=== PATIENT | male | born 1970 | race Caucasian/White ===

== ENCOUNTER 2017-06-17 15:37 | Emergency (ER) | payer BC ==
[2017-06-17 16:43] LABS: ANION GAP 8 MEQ/L (8-16); BLOOD UREA NITROGEN 38 MG/DL (7-18); CALCIUM LEVEL 8.3 MG/DL (8.5-10.1); CARBON DIOXIDE LEVEL 22 MEQ/L (21-32); CHLORIDE LEVEL 113 MEQ/L (98-107); CREATININE FOR GFR 3.09 MG/DL (0.70-1.30); GLOMERULAR FILTRATION RATE 23.2 (>60); GLUCOSE, FASTING 120 MG/DL (70-100); POTASSIUM SERUM 3.9 MEQ/L (3.5-5.1); SODIUM LEVEL 143 MEQ/L (136-145)
[2017-06-17] MEDS: BISACODYL 10 MG SUPP PR (17:45)
== END 2017-06-17 18:17 | disposition home or self-care (01) ==
LOC: M ED 15:37
DX: K59.00 Constipation, unspecified (principal); N18.4 Chronic kidney disease, stage 4 (severe)
CPT/HCPCS: 80048

== ENCOUNTER → 2018-06-11 | Outpatient (REF) | payer BC ==
[~2018-06-11] MED LIST: DULC10SU2 PR; MIRA3350 PO; [UNRECOGNIZED DRUG - CODE] EX
[2018-06-11 19:43] LABS: PERCENT SATURATION 26.6 % (19.7-50.0)
== END ==
LOC: M LAB REF 17:46
PROVIDERS: ATTEND Internal Medicine Nephrology
DX: D64.9 Anemia, unspecified (principal)

== ENCOUNTER → 2019-05-14 | Outpatient (REF) | payer BC ==
[2019-05-14 13:39] LABS: TOTAL T3 77.9 NG/DL (60.0-181.0)
[2019-05-14 13:47] LABS: ALBUMIN 3.8 GM/DL (3.2-5.2); BILIRUBIN,DIRECT 0.1 MG/DL (0.0-0.2); BILIRUBIN,TOTAL 0.4 MG/DL (0.2-1.0); CHOLESTEROL RISK RATIO 3.109 (<5); THYROID STIMULATING HORMONE 2.62 uIU/ML (0.358-3.740); TOTAL PROTEIN 6.7 GM/DL (6.4-8.2)
== END ==
LOC: M LAB REF 13:05
PROVIDERS: ATTEND Nurse Practitioner Family
DX: N18.4 Chronic kidney disease, stage 4 (severe) (principal); Z13.220 Encounter for screening for lipoid disorders; R53.83 Other fatigue

== ENCOUNTER → 2020-04-16 | Outpatient (CLI) | payer SELFPAY | LOC: M LABSMTC 12:13 | PROVIDERS: ATTEND Pediatrics | DX: Z20.822 Contact with and (suspected) exposure to COVID-19 (principal) ==

== ENCOUNTER → 2020-08-19 | Outpatient (CLI) | payer BC | LOC: M LABSMTC 10:02 | PROVIDERS: ATTEND Anesthesiology | DX: Z01.812 Encounter for preprocedural laboratory examination (principal); Z20.822 Contact with and (suspected) exposure to COVID-19 ==

== ENCOUNTER 2020-08-24 08:02 | Day surgery (SDC) | payer BC ==
[~2020-08-24] VITALS: Ht 180.3 cm; Wt 74.4 kg
[~2020-08-24 08:02] MED LIST changes: +NS 1,000 ML IV ONE
[2020-08-24] MEDS ORDERED: LIDOCAINE 2% 100MG/5ML SDV (FOR ANES.) As Ordered ONE (08:36)
[2020-08-24] MEDS ORDERED: propofoL 200 MG/20 ML VIAL As Ordered ONE (08:36)
--- NOTE | 2020-08-24 09:31 | ROOR ---
Patient Name: Dashawn Reynolds Procedure Date: 08/24/2020 9:27 AM Date of : 1970 Age: 50 Room: [facility] Gender: Male Note Status: Finalized Procedure: Colonoscopy Indications: Abdominal pain in the right upper quadrant Providers: DO Oswaldo Carolina MD: Sydnee Steve Md Requesting Provider: Medicines: Propofol per Anesthesia Complications: No immediate complications. Procedure: Pre-Anesthesia Assessment: - Prior to the procedure, a History and Physical was performed, and patient medications and allergies were reviewed. The patient is competent. The risks and benefits of the procedure and the sedation options and risks were discussed with the patient. All questions were answered and informed consent was obtained. Patient identification and proposed procedure were verified by the physician, the nurse, the day care attendant and the resource technician in the endoscopy suite. Mental Status Examination: alert and oriented. Airway Examination: normal oropharyngeal airway and neck mobility. Respiratory Examination: clear to auscultation. CV Examination: normal. Prophylactic Antibiotics: The patient does not require prophylactic antibiotics. Prior Anticoagulants: The patient has taken no previous anticoagulant or antiplatelet agents. ASA Grade Assessment: II - A patient with mild systemic disease. After reviewing the risks and benefits, the patient was deemed in satisfactory condition to undergo the procedure. The anesthesia plan was to use monitored anesthesia care (MAC). Immediately prior to administration of medications, the patient was re-assessed for adequacy to receive sedatives. The heart rate, respiratory rate, oxygen saturations, blood pressure, adequacy of pulmonary ventilation, and response to care were monitored throughout the procedure. The physical status of the patient was re-assessed after the procedure. The Colonoscope was introduced through the anus and advanced to the cecum, identified by appendiceal orifice and ileocecal valve. The colonoscopy was performed without difficulty. The patient tolerated the procedure well. Findings: Non-bleeding internal hemorrhoids were found during retroflexion. The hemorrhoids were Grade II (internal hemorrhoids that prolapse but reduce spontaneously). Two hyperplastic polyps were found in the transverse colon. The polyps were small in size. Estimated blood loss was minimal. These polyps were removed with a jumbo cold forceps. Resection and retrieval were complete. Impression: - Non-bleeding internal hemorrhoids. - Two small polyps in the transverse colon, removed with a jumbo cold forceps. Resected and retrieved. Recommendation: - Patient has a contact number available for emergencies. The signs and symptoms of potential delayed complications were discussed with the patient. Return to normal activities tomorrow. Written discharge instructions were provided to the patient. - Repeat colonoscopy in 5-10 years for surveillance based on pathology results. - Return to my office as previously scheduled. Procedure Code(s): --- Professional --- 19689, Colonoscopy, flexible; with biopsy, single or multiple Diagnosis Code(s): --- Professional --- K64.1, Second degree hemorrhoids K63.5, Polyp of colon R10.11, Right upper quadrant pain CPT copyright 2019 [employer]. All rights reserved. The codes documented in this report are preliminary and upon color laboratory technician review may be revised to meet current compliance requirements. Neri Burton DO 08/24/2020 9:31:03 AM Electronically signed by Neri Burton DO Number of Addenda: 0 Note Initiated On: 08/24/2020 9:27 AM Estimated Blood Loss: Estimated blood loss was minimal.
--- NOTE | 2020-08-24 10:09 | ROOR ---
Patient Name: Dashawn Reynolds Procedure Date: 08/24/2020 9:47 AM Date of : 1970 Age: 50 Room: [facility] Gender: Male Note Status: Finalized Procedure: Colonoscopy Indications: Screening for colorectal malignant neoplasm Providers: Neri Burton DO Referring MD: ADITHYA CHILDRESS DO Requesting Provider: Medicines: Propofol per Anesthesia Complications: No immediate complications. Procedure: Pre-Anesthesia Assessment: - Prior to the procedure, a History and Physical was performed, and patient medications and allergies were reviewed. The patient is competent. The risks and benefits of the procedure and the sedation options and risks were discussed with the patient. All questions were answered and informed consent was obtained. Patient identification and proposed procedure were verified by the physician, the nurse, the value stream manager and the land survey technician in the endoscopy suite. Mental Status Examination: alert and oriented. Airway Examination: normal oropharyngeal airway and neck mobility. Respiratory Examination: clear to auscultation. CV Examination: normal. Prophylactic Antibiotics: The patient does not require prophylactic antibiotics. Prior Anticoagulants: The patient has taken no previous anticoagulant or antiplatelet agents. ASA Grade Assessment: II - A patient with mild systemic disease. After reviewing the risks and benefits, the patient was deemed in satisfactory condition to undergo the procedure. The anesthesia plan was to use monitored anesthesia care (MAC). Immediately prior to administration of medications, the patient was re-assessed for adequacy to receive sedatives. The heart rate, respiratory rate, oxygen saturations, blood pressure, adequacy of pulmonary ventilation, and response to care were monitored throughout the procedure. The physical status of the patient was re-assessed after the procedure. The Colonoscope was introduced through the anus and advanced to the cecum, identified by appendiceal orifice and ileocecal valve. The colonoscopy was performed without difficulty. The patient tolerated the procedure well. Findings: Non-bleeding internal hemorrhoids were found during retroflexion. The hemorrhoids were mild and Grade I (internal hemorrhoids that do not prolapse). The exam was otherwise without abnormality. Impression: - Non-bleeding internal hemorrhoids. - The examination was otherwise normal. - No specimens collected. Recommendation: - Patient has a contact number available for emergencies. The signs and symptoms of potential delayed complications were discussed with the patient. Return to normal activities tomorrow. Written discharge instructions were provided to the patient. - Repeat colonoscopy in 5-10 years for screening purposes. - Return to my office PRN. Procedure Code(s): --- Professional --- G0121, Colorectal cancer screening; colonoscopy on individual not meeting criteria for high risk Diagnosis Code(s): --- Professional --- Z12.11, Encounter for screening for malignant neoplasm of colon K64.0, First degree hemorrhoids CPT copyright 2019 [employer]. All rights reserved. The codes documented in this report are preliminary and upon studio technician video operator review may be revised to meet current compliance requirements. Neri Burton DO 08/24/2020 10:09:51 AM Electronically signed by Neri Burton DO Number of Addenda: 0 Note Initiated On: 08/24/2020 9:47 AM Estimated Blood Loss: Estimated blood loss: none.
[2020-08-24 10:35] VITALS: BP 109/67
== END 2020-08-24 10:36 | disposition home or self-care (01) ==
LOC: M OPP 08:02
PROVIDERS: ATTEND Surgery
DX: Z12.11 Encounter for screening for malignant neoplasm of colon (principal); K64.0 First degree hemorrhoids; N18.9 Chronic kidney disease, unspecified

== ENCOUNTER → 2020-10-27 | Outpatient (CLI) | payer BC ==
[~2020-10-27] MED LIST changes: -NS 1,000 ML IV ONE
== END ==
LOC: M WUC 15:26
DX: Z01.818 Encounter for other preprocedural examination (principal)

== ENCOUNTER → 2020-12-02 | Outpatient (REF) | payer BC | LOC: M LAB REF 12:59 | PROVIDERS: ATTEND Nurse Practitioner Family | DX: E83.42 Hypomagnesemia (principal) ==

== ENCOUNTER → 2021-02-25 | Outpatient (REF) | payer BC ==
[2021-02-25 13:40] LABS: FREE THYROXINE INDEX 2.9 % (1.4-3.8); THYROID STIMULATING HORMONE 2.15 uIU/ML (0.358-3.740); THYROXINE (T4) 8.4 UG/DL (4.5-12.0)
== END ==
LOC: M LAB REF 13:02
PROVIDERS: ATTEND Nurse Practitioner Family
DX: R53.83 Other fatigue (principal)

== ENCOUNTER → 2021-07-28 | Outpatient (REF) | payer BC | LOC: M LAB REF 17:26 | PROVIDERS: ATTEND Internal Medicine Nephrology | DX: Z76.82 Awaiting organ transplant status (principal) ==

== ENCOUNTER → 2022-03-23 | Outpatient (REF) | payer BC ==
[2022-03-23 18:12] LABS: PERCENT SATURATION 28.2 % (19.7-50.0)
== END ==
LOC: M LAB REF 17:02
PROVIDERS: ATTEND Nurse Practitioner Family
DX: D64.9 Anemia, unspecified (principal)

== ENCOUNTER → 2022-04-11 | Outpatient (CLI) | payer BC | LOC: M RAD 13:00 | PROVIDERS: ATTEND Surgery Vascular Surgery | DX: N18.4 Chronic kidney disease, stage 4 (severe) (principal) ==

== ENCOUNTER → 2022-10-17 | Outpatient (REF) | payer BC ==
[2022-10-19 15:10] LABS: EBV AB TO NUCLEAR ANTIGEN >600.0 U/mL (0.0-17.9); EBV VIRAL CAPSID AG IgG >600.0 U/mL (0.0-17.9); EBV VIRAL CAPSID AG IgM <36.0 U/mL (0.0-35.9)
== END ==
LOC: M LAB REF 17:30
PROVIDERS: ATTEND Nurse Practitioner Family
DX: R50.9 Fever, unspecified (principal); R53.83 Other fatigue; S70.369A Insect bite (nonvenomous), unspecified thigh, initial encounter; X58.XXXA Exposure to other specified factors, initial encounter; Y92.9 Unspecified place or not applicable; Y93.9 Activity, unspecified; Y99.9 Unspecified external cause status

== ENCOUNTER 2022-10-18 15:45 | Emergency (ER) | payer BC ==
[~2022-10-18] VITALS: Ht 180.3 cm; Wt 75.7 kg
[2022-10-18 20:22] VITALS: BP 115/69; TEMP 97.6; O2SAT 99
== END 2022-10-18 20:31 | disposition left against medical advice (07) ==
LOC: M ED 15:45
DX: Z53.21 Procedure and treatment not carried out due to patient leaving prior to being seen by health care provider (principal)

== ENCOUNTER → 2022-10-18 | Outpatient (REF) | payer BC | LOC: M LAB REF 21:18 | PROVIDERS: ATTEND Physician Assistant | DX: B34.9 Viral infection, unspecified (principal) ==

== ENCOUNTER → 2022-10-24 | Outpatient (CLI) | payer BC ==
[2022-10-24 16:23] LABS: BASO % 0.7 % (0.0-1.0); EOS # 0.2 10^3/uL (0.0-0.5); HEMATOCRIT 31.6 % (42.0-52.0); HEMOGLOBIN 10.1 g/dl (13.5-17.5); LYMPH # 1.5 10^3/uL (1.5-5.0); LYMPH % 28.2 % (24.0-44.0); MEAN CORPUSCULAR HEMOGLOBIN 29.3 pg (27.0-33.0); MEAN CORPUSCULAR VOLUME 91.6 fl (80.0-96.0); MONO # 0.5 10^3/uL (0.0-0.8); MONO % 9.7 % (2.0-8.0); NEUTROPHILS # 3.1 10^3/uL (1.5-8.5); NEUTROPHILS % 57.8 % (36.0-66.0); PLATELET COUNT, AUTOMATED 361 10^3/uL (150-450); RED BLOOD COUNT 3.45 10^6/uL (4.30-6.10); WHITE BLOOD COUNT 5.4 10^3/uL (4.0-10.0)
== END ==
LOC: M PLALAB 14:01
PROVIDERS: ATTEND Internal Medicine Infectious Disease
DX: A69.20 Lyme disease, unspecified (principal)

== ENCOUNTER → 2023-01-11 | Outpatient (REF) | payer BC | LOC: M LAB REF 17:00 | PROVIDERS: ATTEND Family Medicine | DX: Z00.01 Encounter for general adult medical examination with abnormal findings (principal); R35.1 Nocturia; N18.4 Chronic kidney disease, stage 4 (severe) ==

== ENCOUNTER → 2023-07-26 | Outpatient (REF) | payer BC | LOC: M LAB REF 17:24 | PROVIDERS: ATTEND Internal Medicine Nephrology | DX: Z76.82 Awaiting organ transplant status (principal) ==

== ENCOUNTER → 2023-12-20 | Outpatient (CLI) | payer BC ==
[2023-12-20 19:47] LABS: HEPATITIS B SURFACE ANTIBODY NEGATIVE (POSITIVE)
[2023-12-20 20:39] LABS: HEPATITIS C VIRUS ABY INDEX 4.16 INDEX (<0.8)
== END ==
LOC: M WUC 13:52
PROVIDERS: ATTEND Internal Medicine Nephrology
DX: Z76.82 Awaiting organ transplant status (principal)

== ENCOUNTER → 2024-06-17 | Outpatient (CLI) | payer BC, OTHER | LOC: M CARPUL 11:12 | PROVIDERS: ATTEND Internal Medicine Cardiovascular Disease | DX: I44.0 Atrioventricular block, first degree (principal); R94.31 Abnormal electrocardiogram [ECG] [EKG] ==

== ENCOUNTER → 2024-07-24 | Outpatient (REF) | payer BC ==
[2024-07-24 19:20] LABS: FERRITIN 56.8 NG/ML (10.5-307.3)
== END ==
LOC: M LAB REF 17:02
PROVIDERS: ATTEND Nurse Practitioner Family
DX: D50.9 Iron deficiency anemia, unspecified (principal)

== ENCOUNTER → 2024-12-22 | Outpatient (CLI) | payer OTHER, BC ==
[2024-12-22 15:11] LABS: HEPATITIS C VIRUS ABY INDEX 2.53 INDEX (<0.8)
[2024-12-24 10:46] LABS: HCV RNA QUANTITATION <15 NOT DETECTED IU/mL (NOT DETECTED); HCV RNA log10 <1.18 NOT DETECTED Log IU/mL (NOT DETECTED)
[2024-12-24 14:16] LABS: CYTOMEGALOVIRUS ANTIBODY IGG < 0.60 U/mL (<0.60)
== END ==
LOC: M WUC 11:13 → EDSTATUS 12:02 → M WUC 12:05 → EDSTATUS 14:22
PROVIDERS: ATTEND Internal Medicine Nephrology
DX: Z76.82 Awaiting organ transplant status (principal)